=== PATIENT | female | born 1950 | race Caucasian/White ===

== ENCOUNTER → 2018-04-25 | Outpatient (CLI) | payer MEDICARE, BC ==
[2018-04-26 01:59] LABS: Shrimp IgE <0.10 kU/L
[2018-04-26 02:02] LABS: Walnut IgE (Food) <0.10 kU/L
[2018-04-26 13:53] LABS: Lettuce IgE Class CLASS 0
[2018-04-26 13:54] LABS: Crab IgE <0.35 kU/L (<0.35); Crab IgE Class CLASS 0
[2018-04-26 13:55] LABS: Beef IgE <0.35 kU/L (<0.35); Beef IgE Class CLASS 0; Pork IgE Class CLASS 0
[2018-04-26 13:56] LABS: Apple IgE Class CLASS 0; Onion IgE <0.35 kU/L (<0.35); Onion IgE Class CLASS 0; Salmon IgE <0.35 kU/L (<0.35); Salmon IgE Class CLASS 0; Yeast Bakers/Brew IgE <0.35 kU/L (<0.35)
[2018-04-26 13:57] LABS: Gluten IgE Class CLASS 0; Lobster IgE <0.35 kU/L (<0.35); Lobster IgE Class CLASS 0; Oat IgE Class CLASS 0
[2018-04-26 13:58] LABS: Celery IgE <0.35 kU/L (<0.35); Celery IgE Class CLASS 0; Chicken IgE Class CLASS 0
[2018-04-26 13:59] LABS: Avocado Class CLASS 0; Banana IgE Class CLASS 0; Chocolate IgE Class CLASS 0; Coffee IgE <0.35 kU/L (<0.35); Coffee IgE Class CLASS 0; Hazelnut IgE <0.35 kU/L (<0.35); Hazelnut IgE Class CLASS 0; Kiwi IgE <0.35 kU/L (<0.35)
[2018-04-26 14:00] LABS: Tea IgE <0.35 kU/L (<0.35)
[2018-04-28 11:28] LABS: Crab IgG 2.5 mcg/mL (< 2.0); Egg Yolk IgG 15.6 mcg/mL (< 2.0); Pork IgG 5.3 mcg/mL (< 2.0)
[2018-04-28 11:29] LABS: Apple IgG 3.7 mcg/mL (< 2.0); Banana IgG 14.5 mcg/mL (< 2.0); Beef IgG 12.4 mcg/mL (< 2.0); Coffee IgG 4.9 mcg/mL (< 2.0); Orange IgG 3.1 mcg/mL (< 2.0)
[2018-04-28 11:30] LABS: Celery IgG 2.6 mcg/mL (< 2.0); Chicken Meat IgG < 2.0 mcg/mL (< 2.0); Oat IgG 6.5 mcg/mL (< 2.0); Rice IgG 6.3 mcg/mL (< 2.0)
[2018-04-28 11:31] LABS: Corn IgG 14.2 mcg/mL (< 2.0); Cow's Milk IgG 77.9 mcg/mL (< 2.0); Peanut IgG 4.6 mcg/mL (< 2.0); Soybean IgG 3.5 mcg/mL (< 2.0); Tomato IgG 3.8 mcg/mL (< 2.0); Wheat IgG 8.3 mcg/mL (< 2.0)
== END | disposition home or self-care (01) ==
LOC: LABWHC1 16:28
PROVIDERS: ATTEND Otolaryngology
DX: J30.89 Other allergic rhinitis (principal); L50.0 Allergic urticaria
CPT/HCPCS: 36415; 86001; 86003

== ENCOUNTER → 2021-04-08 | Outpatient (CLI) | payer MEDICARE, BC | END | disposition home or self-care (01) | LOC: LABWHC1 11:42 | PROVIDERS: ATTEND Otolaryngology | DX: J30.89 Other allergic rhinitis (principal) | CPT/HCPCS: 36415 ==